=== PATIENT | female | born 1985 | race Two or more races ===

== ENCOUNTER 2019-02-04 22:57 | Emergency (ER) | payer MEDICAID ==
[~2019-02-04] VITALS: Ht 160 cm; Wt 70.0 kg
[2019-02-04] MEDS ORDERED: HYDROcodone/acetaminophen 10/325mg tab PO ONE (23:40)
[2019-02-04] MEDS ORDERED: ondansetron 4mg rapidly disintigrating tab PO ONE (23:40)
--- NOTE | 2019-02-04 23:55 | NUR ---
PT BACK FROM CT
[2019-02-05 00:01] VITALS: BP 107/71
[2019-02-05] MEDS ORDERED: HYDR-4383 PO (00:25)
[2019-02-05] MEDS ORDERED: IBUP-1984 PO (00:25)
== END 2019-02-05 00:29 | disposition home or self-care (01) ==
LOC: ER 22:57
DX: S30.0XXA Contusion of lower back and pelvis, initial encounter (principal); Z88.1 Allergy status to other antibiotic agents; Z88.8 Allergy status to other drugs, medicaments and biological substances; Z79.899 Other long term (current) drug therapy; W16.211A Fall in (into) filled bathtub causing drowning and submersion, initial encounter; Y93.89 Activity, other specified; Y92.89 Other specified places as the place of occurrence of the external cause; Y99.8 Other external cause status
CPT/HCPCS: 72193; 74176; 99284

== ENCOUNTER 2019-02-28 22:44 | Emergency (ER) | payer MEDICAID ==
[~2019-02-28] VITALS: Ht 160 cm; Wt 75.6 kg
[~2019-02-28 22:44] MED LIST: HYDR-4383 PO
[2019-02-28] MEDS ORDERED: normal saline 1000ML IV soln IVB ONE (23:30)
[2019-02-28] MEDS ORDERED: ondansetron/PF 4mg/2ml inj IV ONE (23:30)
[2019-02-28] MEDS ORDERED: morphine 4 MG/ML inj SYRINge IV PRN (23:30)
[2019-02-28 23:36] LABS: CLARITY,URINE CLEAR (Clear); COLOR,URINE YELLOW (Yellow); GLUCOSE, URINE NEGATIVE (Neg); KETONES,URINE NEGATIVE (Neg); LEUKOCYTE ESTERASE ,URINE NEGATIVE (Neg); NITRITES, URINE NEGATIVE (Neg); OCCULT BLOOD,URINE NEGATIVE (Neg); PH,URINE 5.5 (4.8-8.0); PROTEIN,URINE NEGATIVE (Neg)
[2019-02-28 23:37] LABS: UA COLLECTION TYPE CLN CATCH MIDSTREAM; URINE HCG NEGATIVE (NEG)
[2019-03-01 00:21] LABS: BASOPHILS % (AUTO) 0.6 % (0-1); EOSINOPHILS # (AUTO) 0.2 X10'3 (0-0.9); EOSINOPHILS % (AUTO) 2.1 % (0-6); HEMATOCRIT 38.2 % (35.0-45.0); HEMOGLOBIN 13.3 g/dl (12.0-16.0); LYMPHOCYTES % (AUTO) 26.3 % (21-51); MEAN CORPUSCULAR HEMOGLOBIN 30.9 PG (27.0-31.0); MEAN CORPUSCULAR HGB CONC 34.7 g/dL (33.0-36.5); MEAN CORPUSCULAR VOLUME 89.2 FL (78-98); MEAN PLATELET VOLUME 8.3 FL (7.4-10.4); MONOCYTES # (AUTO) 0.4 X10'3 (0-0.9); MONOCYTES % (AUTO) 5.4 % (2-12); NEUTROPHILS % (AUTO) 65.6 % (42-75); PLATELET COUNT 232 X10'3 (140-440); RED BLOOD COUNT 4.29 X10'6 (4.20-5.60); RED CELL DISTRIBUTION WIDTH 13.3 % (11.5-14.5); WHITE BLOOD COUNT 7.7 X10'3 (4.5-11.0)
[2019-03-01 00:36] LABS: ALANINE AMINOTRANSFERASE 22 U/L (12-78); ALBUMIN 4.1 G/DL (3.4-5.0); ALBUMIN/GLOBULIN RATIO 1.3 (1.1-1.5); ALKALINE PHOSPHATASE 100 IU/L (46-116); ANION GAP 6 (8-16); ASPARTATE AMINO TRANSFERASE 25 U/L (10-37); BILIRUBIN,TOTAL 0.3 MG/DL (0.1-1.0); BLOOD UREA NITROGEN 15 MG/DL (7-18); BUN/CREATININE RATIO 21.1 (6.6-38.0); CALCIUM 8.6 MG/DL (8.5-10.1); CHLORIDE 105 MMOL/L (99-107); CREATININE 0.71 MG/DL (0.40-0.90); GLUCOSE 89 MG/DL (70-104); LIPASE 91 U/L (73-393); POTASSIUM 3.2 MMOL/L (3.5-5.1); SODIUM 140 MMOL/L (135-145); TOTAL CARBON DIOXIDE 29.1 MMOL/L (24-32); TOTAL PROTEIN 7.3 G/DL (6.4-8.2); eGFR > 90 ML/MIN
[2019-03-01] MEDS ORDERED: potassium Cl 20 mEq SR tablet PO STA (00:39)
[2019-03-01] MEDS ORDERED: HYDR-3965 PO (00:41)
[2019-03-01] MEDS ORDERED: ONDA4TAB6 PO (00:41)
[2019-03-01] MEDS ORDERED: ondansetron/PF 4mg/2ml inj IV ONE (00:45)
[2019-03-01] MEDS ORDERED: HYDROcodone/acetaminophen 5mg/325mg tablet PO ONE (00:45)
--- NOTE | 2019-03-01 00:54 | NUR ---
CALLED [facility] AT 00:54 WILL BE IN [facility]
[2019-03-01 02:27] VITALS: BP 104/64
== END 2019-03-01 02:28 | disposition home or self-care (01) ==
LOC: ER 22:44
DX: R10.31 Right lower quadrant pain (principal); R11.2 Nausea with vomiting, unspecified; E87.6 Hypokalemia; Z88.8 Allergy status to other drugs, medicaments and biological substances; Z88.1 Allergy status to other antibiotic agents; Z79.899 Other long term (current) drug therapy
CPT/HCPCS: 36415; 74176; 76830; 80053; 81003; 81025; 83690; 85025; 96361; 96374; 96375; 96376; 99284; J2270; J2405; J7030